=== PATIENT | female | born 1995 | race African-American/Black ===

== ENCOUNTER 2017-07-20 19:46 | Inpatient (IN) | payer OTHER ==
[~2017-07-20] VITALS: Ht 152.4 cm; Wt 103.9 kg
--- NOTE | ~2017-07-20 | EKG ---
[address] [address] ELECTROCARDIOGRAM REPORT Name: [place] Tam [facility]Na[facility]#: [id number] Admission: 07/20/17 Attend Phys: Discharge: Date of : 89 Report #: [id number] THIS REPORT FOR: //name// [facility] ED Test Date: 2017-07-20 Test Time: 20:08:29 Pat Name: [place] Department: Room: Gender: F [employer] Equipment [employer]airer: DOMO : 1995 Requested By: Rashi Rodriguez Order Number: [id number] MD: Jaron White Measurements Intervals [place] Rate: 101 P: 62 MI: 147 QRS: 21 QRSD: 72 T: 30 QT: 307 QTc: 398 Interpretive Statements Sinus tachycardia No previous ECG available for comparison Electronically Signed On 07-20-2017 20:42:49 CDT by Jaron White [email or web address] <ELECTRONICALLY SIGNED> By: Jaron White MD 07/20/172041 07 07 Jaron White MD /EPI
[2017-07-20 19:47] VITALS: BP 124/79
[2017-07-20 20:11] LABS: ABSOLUTE NEUTROPHILS 8.6 thou/uL (1.4-8.2); BASOPHILS 0.9 % (0.0-2.0); EOSINOPHILS 0.2 % (0.0-3.0); HEMATOCRIT 40.9 % (37.0-47.0); HEMOGLOBIN 13.8 gm/dL (12.0-15.0); MCH 27.4 pg (26.0-34.0); MCHC 33.9 g/dL (28.0-37.0); MCV 80.7 fL (80.0-100.0); MONOCYTES 11.4 % (1.0-8.0); PLATELET COUNT 282 thou/uL (150-400); POLYS 60.5 % (36.0-66.0); RBC 5.06 mil/uL (4.20-5.00); RDW 13.4 % (10.5-14.5); WBC 14.2 thou/uL (4.0-11.0)
[2017-07-20 20:13] LABS: MANUAL DIFF NO
[2017-07-20 20:21] LABS: CALCIUM 9.1 mg/dL (8.5-10.1); POTASSIUM 3.1 mmol/L (3.5-5.1)
[2017-07-20 20:48] LABS: URINE BILIRUBIN NEGATIVE (Negative); URINE BLOOD 3+ (Negative); URINE COLOR YELLOW; URINE GLUCOSE-RANDOM* NEGATIVE (Negative); URINE KETONES TRACE (Negative); URINE NITRITE NEGATIVE (Negative); URINE PROTEIN (DIPSTICK) TRACE (Negative); URINE UROBILINOGEN 0.2 E.U./dl (0.2-1.0)
[2017-07-20 20:54] LABS: SQUAMOUS >10 Many /LPF (0-3)
[2017-07-20 20:55] LABS: CASTS None Seen /LPF (None Seen); CRYSTALS None Seen /LPF (None Seen)
[2017-07-20 22:05] LABS: ALBUMIN 3.6 g/dL (3.4-5.0); ALKALINE PHOSPHATASE 95 U/L (46-116); DIRECT BILIRUBIN < 0.1 mg/dL (<0.1-0.3); SGOT 22 U/L (15-37); SGPT 23 U/L (30-65); TOTAL BILIRUBIN 0.3 mg/dL (<0.1-1.0)
[2017-07-20 22:40] VITALS: BP 136/75
[2017-07-20 23:41] LABS: AMP/METHAMP Negative (Negative); BARBITURATES Negative (Negative); BENZODIAZEPINES Negative (Negative); COCAINE Negative (Negative); METHADONE Negative (Negative); OPIATES Negative (Negative); PCP Negative (Negative); THC POSITIVE (Negative)
[2017-07-21] VITALS: BP 134/75
[2017-07-21 03:50] VITALS: BP 130/62
[2017-07-21 04:56] LABS: HEMATOCRIT 40.2 % (37.0-47.0); HEMOGLOBIN 13.4 gm/dL (12.0-15.0); MCH 27.3 pg (26.0-34.0); MCHC 33.4 g/dL (28.0-37.0); MCV 81.7 fL (80.0-100.0); RBC 4.92 mil/uL (4.20-5.00); RDW 13.5 % (10.5-14.5); WBC 14.7 thou/uL (4.0-11.0)
[2017-07-21 05:04] LABS: CALCIUM 9.1 mg/dL (8.5-10.1); POTASSIUM 3.3 mmol/L (3.5-5.1)
[2017-07-21 08:09] VITALS: BP 144/79
[2017-07-21 13:08] VITALS: BP 135/82
[2017-07-21 17:02] VITALS: BP 130/74
[2017-07-21 20:00] VITALS: BP 142/78
[2017-07-22 04:00] VITALS: BP 141/58
[2017-07-22 05:50] LABS: ABSOLUTE NEUTROPHILS 7.8 thou/uL (1.4-8.2); BASOPHILS 0.6 % (0.0-2.0); EOSINOPHILS 2.9 % (0.0-3.0); HEMATOCRIT 37.8 % (37.0-47.0); HEMOGLOBIN 12.7 gm/dL (12.0-15.0); LYMPHOCYTES 25.1 % (24.0-44.0); MCH 27.4 pg (26.0-34.0); MCHC 33.6 g/dL (28.0-37.0); MCV 81.4 fL (80.0-100.0); MONOCYTES 7.9 % (1.0-8.0); PLATELET COUNT 282 thou/uL (150-400); POLYS 63.5 % (36.0-66.0); RBC 4.64 mil/uL (4.20-5.00); RDW 13.3 % (10.5-14.5); WBC 12.3 thou/uL (4.0-11.0)
[2017-07-22 06:01] LABS: CALCIUM 8.6 mg/dL (8.5-10.1); CREATININE 0.8 mg/dL (0.6-1.0); POTASSIUM 3.4 mmol/L (3.5-5.1)
[2017-07-22 06:24] LABS: MANUAL DIFF NO
[2017-07-22 08:41] VITALS: BP 129/74
[2017-07-22] MEDS ORDERED: KEFLEX500 MG PO (10:58)
[2017-07-22 11:05] VITALS: BP 129/74
[2017-07-22 20:06] LABS: CHLAMYDIA TRACHOMATIS-PCR Negative (Negative); NEISSERIA GONORRHEA-PCR Negative (Negative)
== END 2017-07-22 17:14 | disposition home or self-care (01) | DRG 690 ==
LOC: ER 19:46 → EROBS 22:49 → 3W 22:49 → EROBS 23:50 → 3W 23:50 → ENTRNSPT 07-22 16:46 → 3W 07-22 17:14
PROVIDERS: Family Medicine; Nurse Practitioner; Nurse Practitioner Family
DX: N12 Tubulo-interstitial nephritis, not specified as acute or chronic (principal); A64 Unspecified sexually transmitted disease; E87.6 Hypokalemia; E86.0 Dehydration; N18.9 Chronic kidney disease, unspecified; E78.5 Hyperlipidemia, unspecified; F12.90 Cannabis use, unspecified, uncomplicated; E78.00 Pure hypercholesterolemia, unspecified; J45.909 Unspecified asthma, uncomplicated; N73.9 Female pelvic inflammatory disease, unspecified; I12.9 Hypertensive chronic kidney disease with stage 1 through stage 4 chronic kidney disease, or unspecified chronic kidney disease
CPT/HCPCS: 10080